=== PATIENT | female | born 1955 | race Caucasian/White ===

== ENCOUNTER 2018-09-15 09:24 | Emergency (ER) | payer BC, SELFPAY ==
[2018-09-15 10:00] LABS: Absolute Lymphocytes (CBC) 1.6 K/uL (0.7-4.9); Absolute Monocytes 0.4 K/uL (0.1-1.3); Absolute Neutrophil 3.8 K/uL (1.8-8.0); Basophils % 0.7 % (0-1.3); Eosinophils % 2.7 % (0-4.4); Hematocrit 44.9 % (36.0-45.0); MPV 8.3 fL (7.6-11.3); Monocytes % 6.4 % (3.3-12.3)
--- NOTE | 2018-09-15 10:05 | RAD REPORT ---
EXAM DESCRIPTION: CT - Ct Stroke Brain Wo Cont - 09/15/2018 9:56 am CLINICAL HISTORY: Left-sided headache, left-sided ear pain, right-sided facial droop CLINICAL HISTORY: None. TECHNIQUE: Axial 5 millimeter thick images of the head were obtained without IV contrast. All CT scans are performed using dose optimization technique as appropriate and may include automated exposure control or mA/KV adjustment according to patient size. FINDINGS: No intracranial hemorrhage, mass, or cerebral edema. No acute infarction identifiable. No extra-axial fluid collections. Quinteros matter-white matter differentiation is preserved. Minimal chronic ischemic changes. No significant atrophy. Ventricles are normal size. Visualized portions of the mastoid air cells, paranasal sinuses, and orbits are unremarkable. Findings telephoned to the referring clinician 1001 hours IMPRESSION: No CT evidence of acute intracranial process. Patient has minimal chronic ischemic st[place] e.
[2018-09-15 10:15] LABS: Protime INR 0.97
[2018-09-15 10:17] LABS: Potassium 3.4 mmol/L (3.5-5.1)
--- NOTE | 2018-09-15 10:55 | EDPHYS ---
Physician Documentation [facility] Name: Tanna Casper Age: 63 yrs Sex: Female : 1955 Arrival Date: 09/15/2018 Time: 09:19 Bed 18 Private MD: ED Physician Chapin Alegria HPI: 09/15 10:00 This 63 yrs old Female presents to ER via Wheelchair with complaints of kb Numbness Of Face, Ear Pain. 10:00 The patient's problem is reported as a facial droop, on left. Onset: The kb symptoms/episode began/occurred yesterday, at 08:00. Duration: The episode is continuous. Context: the episode(s) was witnessed, by a significant other, symptoms became apparent on September 14, 2018, at 08:00. occurred at home, occurred while the patient was hanging blinds. The symptoms are alleviated by nothing. The symptoms are aggravated by nothing. Associated signs and symptoms: Pertinent positives: facial droop. Severity of symptoms: At their worst the symptoms were mild in the emergency department the symptoms are unchanged. Patient's baseline: Neuro: alert and fully oriented, Motor: no deficits, Ambulation: walks without assistance, Speech: normal. The patient has not experienced similar symptoms in the past. The patient has not recently seen a physician. Pt reports left ear pain for several days, then yesterday noticed left facial droop after hanging blinds between 0800 and 0900. Denies any other symptoms. Reports she cannot close left eye very tight or well. reports he has noticed that her left eye hasn't been blinking as much as the right. . Historical: - Allergies: : Tylenol #3; sv - Home Meds: : amlodipine 5 mg tab 1 tab once daily [Active]; allopurinol 300 mg Oral tab 1 tab once rb1 daily [Active]; Jentadueto 2.5-500 mg oral tab 1 tab 2 times per day [Active]; levothyroxine oral [Active]; carvedilol 25 mg oral tab 1 tab 2 times per day [Active]; Jardiance 25 mg oral tab 1 tab once daily [Active]; - PMHx: : Hypertension; Diabetes - NIDDM; Gout; sv - PSHx: Cholecystectomy; Tubal ligation; Tonsillectomy; sv 09:25 abdominal - flesh eating bacteria; rb1 - Immunization history:: Flu vaccine is up to date. - Social history:: Smoking status: Patient/guardian denies using tobacco. - Ebola Screening: : No symptoms or risks identified at this time. ROS: 09:56 Constitutional: Negative for fever, chills, and weight loss, Neck: Negative for injury, kb pain, and swelling, Cardiovascular: Negative for chest pain, palpitations, and edema, Respiratory: Negative for shortness of breath, cough, wheezing, and pleuritic chest pain, Abdomen/GI: Negative for abdominal pain, nausea, vomiting, diarrhea, and constipation, Back: Negative for injury and pain, : Negative for injury, bleeding, discharge, and swelling, MS/Extremity: Negative for injury and deformity, Skin: Negative for injury, rash, and discoloration. 09:56 ENT: Positive for ear pain. 09:56 Neuro: Positive for facial droop. Exam: 09:56 Constitutional: This is a well developed, well nourished patient who is awake, alert, kb and in no acute distress. Head/Face: Normocephalic, atraumatic. Eyes: Pupils equal round and reactive to light, extra-ocular motions intact. Lids and lashes normal. Conjunctiva and sclera are non-icteric and not injected. Cornea within normal limits. Periorbital areas with no swelling, redness, or edema. Neck: Trachea midline, no thyromegaly or masses palpated, and no cervical lymphadenopathy. Supple, full range of motion without nuchal rigidity, or vertebral point tenderness. No Meningismus. Chest/axilla: Normal chest wall appearance and motion. Nontender with no deformity. No lesions are appreciated. Cardiovascular: Regular rate and rhythm with a normal S1 and S2. No gallops, murmurs, or rubs. Normal PMI, no JVD. No pulse deficits. Respiratory: Lungs have equal breath sounds bilaterally, clear to auscultation and percussion. No rales, rhonchi or wheezes noted. No increased work of breathing, no retractions or nasal flaring. Abdomen/GI: Soft, non-tender, with normal bowel sounds. No distension or tympany. No guarding or rebound. No evidence of tenderness throughout. Back: No spinal tenderness. No costovertebral tenderness. Full range of motion. Skin: Warm, dry with normal turgor. Normal color with no rashes, no lesions, and no evidence of cellulitis. MS/ Extremity: Pulses equal, no cyanosis. Neurovascular intact. Full, normal range of motion. 09:56 ENT: External ear(s): are unremarkable, Ear canal(s): are normal, TM's: fluid levels, on the left, Nose: is normal, Mouth: is normal, Posterior pharynx: is normal. 09:56 Neuro: Orientation: is normal, to person, place, time \T\ situation. Mentation: is normal, able to follow commands, Memory: is normal, Cranial nerves: facial droop noted on left, with forehead spared. Cerebellar function: is grossly normal, Motor: is normal, moves all fours, strength is 5/5 in all extremities, Sensation: is normal, Gait: is steady. 10:51 Radiologist reports: report normal ct head ma2 Vital Signs: 09:21 BP 170 / 79; Pulse 65; Resp 16; Temp 97.2; Pulse Ox 97% ; Weight 76.66 kg; Height 5 ft. sv 4 in. (162.56 cm); Pain 7/10; 10:37 BP 149 / 99; Pulse 66; Resp 16; Pulse Ox 96% on R/A; aj1 11:28 BP 156 / 78; Pulse 91; Resp 18; Pulse Ox 96% ; aj1 12:13 BP 143 / 59; Pulse 66; Resp 18; Pulse Ox 95% on R/A; aj1 13:16 BP 134 / 72; Pulse 65; Resp 18; Pulse Ox 95% on R/A; aj1 09:21 Body Mass Index 29.01 (76.66 kg, 162.56 cm) sv NIH Stroke Scale Scores: 09:56 NIHSS Score: 1 kb MDM: 09:31 Patient medically screened. kb 09:59 Data reviewed: vital signs, nurses notes. Data interpreted: Pulse oximetry: on room air kb is 97 %. Interpretation: normal. 10:49 Counseling: I had a detailed discussion with the patient and/or guardian regarding: the ma2 historical points, exam findings, and any diagnostic results supporting the discharge/admit diagnosis, the presence of at least one elevated blood pressure reading (>120/80) during this emergency department visit, the need to transfer to another facility. ED course: ptn has left sided facial droop and weakness sparing forehead x 24 hrs and she is out of window for tpa, took 2 baby aspirin before coming to er.. . 10:49 ED course: no neurology available in our hospital . ma2 09/15 09:38 Order name: Basic Metabolic Panel; Complete Time: 10:29 kb 09/15 09:38 Order name: CBC with Diff; Complete Time: 10:29 kb 09/15 09:38 Order name: Protime (+inr); Complete Time: 10:29 kb 09/15 09:38 Order name: Ptt, Activated; Complete Time: 10:29 kb 09/15 09:38 Order name: CT Stroke Brain w/o Contrast; Complete Time: 10:29 kb 09/15 09:55 Order name: Glucose, Ancillary Testing; Complete Time: 09:56 EDMS 09/15 09:38 Order name: Stroke CXR 1 View kb 09/15 09:38 Order name: EKG; Complete Time: 09:39 kb 09/15 09:38 Order name: Accucheck; Complete Time: 09:53 kb 09/15 09:38 Order name: Cardiac monitoring; Complete Time: 10:20 kb 09/15 09:38 Order name: EKG - Nurse/Tech; Complete Time: 10:20 kb 09/15 09:38 Order name: IV Saline Lock; Complete Time: 09:53 kb 09/15 09:38 Order name: Labs collected and sent; Complete Time: 09:53 kb 09/15 09:38 Order name: NPO; Complete Time: 10:20 kb 09/15 09:38 Order name: O2 Per Protocol; Complete Time: 10:20 kb 09/15 09:38 Order name: O2 Sat Monitoring; Complete Time: 10:20 kb 09/15 09:38 Order name: Stroke Swallow Screen; Complete Time: 11:27 kb Administered Medications: 11:27 Drug: Aspirin Chewable Tablet 162 mg Route: PO; aj1 12:13 Follow up: Response: No adverse reaction aj1 Point of Care Testing: Blood Glucose: 09:52 Blood Glucose: 167 mg/dL; dh3 Ranges: Critical Glucose Levels:Adult <50 mg/dl or >400 mg/dl <40 mg/dl or >180 mg/dl Disposition: 10:49 Co-signature as Attending Physician, Chapin Alegria MD. ma2 Disposition: 09/15/18 10:54 Transfer ordered to [facility]. Diagnosis is Cerebrovascular disease, unspecified. - Reason for transfer: Higher level of care. - Accepting physician is Accepted by Dr. Barragan. - Condition is Stable. - Problem is new. - Symptoms are unchanged. NIH Stroke Scale - NIH Stroke Score Date: 09/15/2018 Time: 09:56 Total Score = 1 1a. Level of Consciousness (LOC) - 0(Alert) 1b. Level of Consciousness (LOC) (Year \T\ Age) - 0(Both) 1c. LOC Commands (Open \T\ Closes Eyes/[employer] Wiring Technician) - 0(Both) 2. Best Gaze (Lateral Gaze Paresis) - 0(Normal) 3. Visual Field Loss - 0(No visual loss) 4. Facial Palsy - 1(Minor Paralysis) 5a. Left Arm: Motor (10-second hold) - 0(No drift) 5b. Right Arm: Motor (10-second hold) - 0(No drift) 6a. Left Leg: Motor (5-second hold - always test supine) - 0(No drift) 6b. Right Leg: Motor (5-second hold - always test supine) - 0(No drift) 7. Limb Ataxia (finger/nose \T\ heel/cesar - test with eyes open) - 0(Absent) 8. Sensory Loss (pinprick arms/legs/face) - 0(Normal) 9. Best Language: Aphasia (description/naming/reading) - 0(No aphasia) 10. Dysarthria (speech clarity - read or repeat words) - 0(Normal) 11. Extinction and Inattention (visual/tactile/auditory/spatial/personal) - 0(No abnormality) Initials: kb Signatures: Dispatcher [employer] EDSofy Roach, APPLICATION ADMINISTRATOR-C APPLICATION ADMINISTRATOR-Ckb Doreen Mcdonnell RN RN ajRuchi Lovett RN RN sv Smirch, Shelby, RN RN ss Barber, Rebecca, RN RN rb1 Alzahri, Mohammad, MD MD ma2 Corrections: (The following items were deleted from the chart) 11:08 10:54 09/15/2018 10:54 Transfer ordered to [facility]. ma2 Diagnosis is Cerebrovascular disease, unspecified. Reason for transfer: Higher level of care. Accepting physician is [facility]. Condition is Stable. Problem is new. Symptoms are unchanged. ma2 13:23 11:08 09/15/2018 10:54 Transfer ordered to [facility]. ss Diagnosis is Cerebrovascular disease, unspecified. Reason for transfer: Higher level of care. Accepting physician is Accepted by Dr. Barragan. Condition is Stable. Problem is new. Symptoms are unchanged. ma2
--- NOTE | 2018-09-15 10:55 | ER ---
Nurse's Notes [facility] Name: Tanna Casper Age: 63 yrs Sex: Female : 1955 Arrival Date: 09/15/2018 Time: :19 Bed 18 Private MD: Diagnosis: Cerebrovascular disease, unspecified Presentation: 09/15 09:19 Presenting complaint: Patient states: left ear pain started 3 days ago and was noticed sv yesterday by spouse that pt had a left sided facial droop and was unable to close her left eye. Transition of care: patient was not received from another setting of care. Onset of symptoms was September 15, 2018 at 08:00. Care prior to arrival: None. : Method Of Arrival: Wheelchair sv : Acuity: MARKO 3 sv :25 Risk Assessment: Do you want to hurt yourself or someone else? Patient reports no rb1 desire to harm self or others. Initial Sepsis Screen: Does the patient meet any 2 criteria? No. Patient's initial sepsis screen is negative. Does the patient have a suspected source of infection? No. Patient's initial sepsis screen is negative. Historical: - Allergies: : Tylenol #3; sv - Home Meds: 09:25 amlodipine 5 mg tab 1 tab once daily [Active]; allopurinol 300 mg Oral tab 1 tab once rb1 daily [Active]; Jentadueto 2.5-500 mg oral tab 1 tab 2 times per day [Active]; levothyroxine oral [Active]; carvedilol 25 mg oral tab 1 tab 2 times per day [Active]; Jardiance 25 mg oral tab 1 tab once daily [Active]; - PMHx: 09:21 Hypertension; Diabetes - NIDDM; Gout; sv - PSHx: 09:21 Cholecystectomy; Tubal ligation; Tonsillectomy; sv 09:25 abdominal - flesh eating bacteria; rb1 - Immunization history:: Flu vaccine is up to date. - Social history:: Smoking status: Patient/guardian denies using tobacco. - Ebola Screening: : No symptoms or risks identified at this time. Screenin:25 Abuse screen: Denies threats or abuse. Nutritional screening: No deficits noted. rb1 Tuberculosis screening: No symptoms or risk factors identified. Fall Risk None identified. 11:27 Patient has been NPO before screening. The patient is alert, able to follow commands. aj1 The patient does not exhibit slurred or garbled speech The patient is not exhibiting difficulty speaking. The patient does not exhibit difficulty understanding words. The patient is able to swallow own secretions with no drooling or need for suction. Patient tolerated one teaspoon of water. No drooling, immediate coughing, gurgling, or clearing of the throat was noted. The patient tolerated 90mL of water. No drooling, immediate coughing, gurgling, or clearing of the throat was noted. The patient passed the bedside swallow screening. Oral medications may be given as ordered. Contact Physician for further diet orders. Provider notified of bedside swallow screening results: Chapin Alegria MD. Assessment: 09:25 General: Appears in no apparent distress. comfortable, Behavior is calm, cooperative. rb1 Pain: Complains of pain in left ear Pain currently is 4 out of 10 on a pain scale. Pain began x 1 week. Neuro: Level of Consciousness is awake, alert, obeys commands, Oriented to person, place, time, situation, Court Recorder are equal bilaterally Moves all extremities. Gait is steady, Speech is normal, Facial droop on left, Pupils are PERRLA, Pt. noticed that her left eye wasn't blinking with the right eye yesterday \T\ [id number]. Cardiovascular: Capillary refill < 3 seconds is brisk in bilateral fingers. Respiratory: Airway is patent Respiratory effort is even, unlabored, Respiratory pattern is regular, symmetrical. GI: No signs and/or symptoms were reported involving the gastrointestinal system. : No signs and/or symptoms were reported regarding the genitourinary system. EENT: left facial droop. Derm: Skin is pink, warm \T\ dry. Musculoskeletal: Range of motion: intact in all extremities. 10:36 General: Appears in no apparent distress. comfortable, Behavior is calm, cooperative, aj1 appropriate for age. Pain: Complains of pain in left ear. Neuro: Level of Consciousness is awake, alert, obeys commands, Oriented to person, place, time, situation, Court Recorder are equal bilaterally Moves all extremities. Full function Gait is steady, Speech is normal, Facial droop on left, Pupils are PERRLA. Cardiovascular: Patient's skin is warm and dry. Rhythm is sinus rhythm. Respiratory: Airway is patent Respiratory effort is even, unlabored, Respiratory pattern is regular, symmetrical. GI: No signs and/or symptoms were reported involving the gastrointestinal system. : No signs and/or symptoms were reported regarding the genitourinary system. EENT: Reports ear pain. Derm: No signs and/or symptoms reported regarding the dermatologic system. Skin is pink, warm \T\ dry. normal. Musculoskeletal: Range of motion: intact in all extremities. 11:28 Reassessment: Patient appears in no apparent distress at this time. No changes from aj1 previously documented assessment. Patient and/or family updated on plan of care and expected duration. Pain level reassessed. Patient is alert, oriented x 3, equal unlabored respirations, skin warm/dry/pink. 12:12 Reassessment: Patient appears in no apparent distress at this time. No changes from aj1 previously documented assessment. Patient and/or family updated on plan of care and expected duration. Pain level reassessed. Patient is alert, oriented x 3, equal unlabored respirations, skin warm/dry/pink. 13:16 Reassessment: Patient appears in no apparent distress at this time. No changes from aj1 previously documented assessment. Patient and/or family updated on plan of care and expected duration. Pain level reassessed. Patient is alert, oriented x 3, equal unlabored respirations, skin warm/dry/pink. Vital Signs: 09:21 BP 170 / 79; Pulse 65; Resp 16; Temp 97.2; Pulse Ox 97% ; Weight 76.66 kg; Height 5 ft. sv 4 in. (162.56 cm); Pain 7/10; 10:37 BP 149 / 99; Pulse 66; Resp 16; Pulse Ox 96% on R/A; aj1 11:28 BP 156 / 78; Pulse 91; Resp 18; Pulse Ox 96% ; aj1 12:13 BP 143 / 59; Pulse 66; Resp 18; Pulse Ox 95% on R/A; aj1 13:16 BP 134 / 72; Pulse 65; Resp 18; Pulse Ox 95% on R/A; aj1 09:21 Body Mass Index 29.01 (76.66 kg, 162.56 cm) sv NIH Stroke Scale Scores: 09:56 NIHSS Score: 1 kb ED Course: 09:19 Patient arrived in ED. sv 09:20 Triage completed. sv 09:22 Arm band placed on. sv 09:25 Patient has correct armband on for positive identification. Bed in low position. Call rb1 light in reach. Side rails up X 1. Pulse ox on. NIBP on. Warm blanket given. 09:27 Floridalma Estrada, RN is Primary Nurse. rb1 09:31 Sofy Schneider[facility] kb 09:31 Chapin Alegria MD is Attending Physician. kb 09:50 Initial lab(s) drawn, by me, sent to lab. Inserted saline lock: 22 gauge in right dh3 forearm, using aseptic technique. Blood collected. 09:54 Report given to RACHAEL Logan. rb1 09:57 CT Stroke Brain w/o Contrast In Process Unspecified. EDMS 10:09 Stroke CXR 1 View In Process Unspecified. EDMS 10:19 EKG done, by ED staff, reviewed by Chapin Alegria MD. 3 10:50 initiated a transfer with Lexi at the [facility] transfer center. eb 11:06 connected the neurologist conservation science teacher from [facility] Dr. Hermosillo with ED doc for eb patient transfer consultation. 11:24 connected the hospitalist conservation science teacher Dr. Carpio from [facility] with ED doc for eb patient transfer consultation. 11:36 administrative approval given by Lexi Liang/ pt going to bed 902/ report to be eb called to [phone]/ Dr. Carpio,N accepted the patient in transfer. 12:12 Report given to RACHAEL Lopez at [facility]. aj1 12:13 No provider procedures requiring assistance completed. Patient transferred, IV remains aj1 in place. Administered Medications: 11:27 Drug: Aspirin Chewable Tablet 162 mg Route: PO; aj1 12:13 Follow up: Response: No adverse reaction aj1 Point of Care Testing: Blood Glucose: 09:52 Blood Glucose: 167 mg/dL; 3 Ranges: Outcome: 10:54 ER care complete, transfer ordered by . ma2 13:22 Transferred by ground EMS 13:22 Condition: good 13:22 Instructed on the need for transfer. 13:23 Patient left the ED. NIH Stroke Scale - NIH Stroke Score Date: 09/15/2018 Time: 09:56 Total Score = 1 1a. Level of Consciousness (LOC) - 0(Alert) 1b. Level of Consciousness (LOC) (Year \T\ Age) - 0(Both) 1c. LOC Commands (Open \T\ Closes Eyes/Tmh Teacher) - 0(Both) 2. Best Gaze (Lateral Gaze Paresis) - 0(Normal) 3. Visual Field Loss - 0(No visual loss) 4. Facial Palsy - 1(Minor Paralysis) 5a. Left Arm: Motor (10-second hold) - 0(No drift) 5b. Right Arm: Motor (10-second hold) - 0(No drift) 6a. Left Leg: Motor (5-second hold - always test supine) - 0(No drift) 6b. Right Leg: Motor (5-second hold - always test supine) - 0(No drift) 7. Limb Ataxia (finger/nose \T\ heel/cesar - test with eyes open) - 0(Absent) 8. Sensory Loss (pinprick arms/legs/face) - 0(Normal) 9. Best Language: Aphasia (description/naming/reading) - 0(No aphasia) 10. Dysarthria (speech clarity - read or repeat words) - 0(Normal) 11. Extinction and Inattention (visual/tactile/auditory/spatial/personal) - 0(No abnormality) Initials: kb Signatures: Dispatcher [employer] EDMS Sofy Schneider, HEAD REFRIGERATING ENGINEER-C HEAD REFRIGERATING ENGINEER-Ckb Doreen Mcdonnell RN RN ajRuchi Lovett RN RN sv Smirch, Shelby, RN RN ss Barber, Rebecca, RN RN [facility] Marissa Dailey Chapin Jacques MD MD ma Pamela Felipe Corrections: (The following items were deleted from the chart) 11:27 11:[address] Hermosillo with ED doc for patient transfer consultation. slava pedersen
[2018-09-15] MEDS ORDERED: ASPIRIN 81 MG CHEWABLE TABLET ONE (11:34)
--- NOTE | 2018-09-15 11:53 | RAD REPORT ---
EXAM DESCRIPTION: RAD - Chest Single View - 09/15/2018 10:09 am CLINICAL HISTORY: Chest pain, shortness of breath COMPARISON: None. TECHNIQUE: AP portable chest image was obtained 1002 hours . FINDINGS: Lungs are clear. Heart and vasculature are normal. No measurable pleural effusion and no p neumothorax. No acute bony abnormality seen. No acute aortic findings suspected. IMPRESSION: No acute cardiopulmonary process.
--- NOTE | 2018-09-15 16:17 | EKG ---
Test Date: 2018-09-15 Test Time: 10:11:50 Chief Order Dispatcher: GUSTAVO MEASUREMENT RESULTS: Intervals: Rate: 64 MD: 152 QRSD: 90 QT: 412 QTc: 425 [place]: P: 47 MD: 152 QRS: 64 T: 73 INTERPRETIVE STATEMENTS: Normal sinus rhythm Normal ECG No previous ECG available for comparison Electronically Signed On 09-15-18 16:16:42 AIR HOLE DRILLER by Gt Kennedy
== END 2018-09-15 13:23 | disposition short-term general hospital (02) ==
LOC: ER 09:24
DX: I63.9 Cerebral infarction, unspecified (principal); I10 Essential (primary) hypertension; R29.810 Facial weakness; E11.9 Type 2 diabetes mellitus without complications; M10.9 Gout, unspecified; Z79.84 Long term (current) use of oral hypoglycemic drugs; Z79.899 Other long term (current) drug therapy
CPT/HCPCS: 36415; 70450; 71045; 80048; 82962; 85025; 85610; 85730; 93005; 99285